=== PATIENT | male | born 1980 | race Caucasian/White ===

== ENCOUNTER 2019-09-12 09:29 | Emergency (ER) | payer MEDICAID ==
[~2019-09-12] VITALS: Ht 182.9 cm; Wt 79.0 kg
[2019-09-12] MEDS ORDERED: SODIUM CHLORIDE 0.9% 1,000 ML IV ONE (09:56)
[2019-09-12 10:28] LABS: BASOPHILS % 0.7 % (0.0-2.0); EOSINOPHILS % 1.1 % (0.0-5.0); HEMATOCRIT. 49.2 % (42.0-52.0); HEMOGLOBIN. 16.6 g/dL (14.0-18.0); LYMPHOCYTES % 21.3 % (20.0-50.0); MEAN CORPUSCULAR HEMOGLOBIN 31.2 pg (28.0-32.0); MEAN CORPUSCULAR VOLUME 92.4 fL (80.0-94.0); MEAN PLATELET VOLUME 8.7 fl (7.4-10.4); MONOCYTES % 8.6 % (2.0-8.0); NEUTROPHILS % 68.3 % (40.0-76.0); PLATELET 296 x1000/uL (130-400); RED BLOOD CELL COUNT 5.32 mill/uL (4.7-6.1)
[2019-09-12 10:29] LABS: CHLORIDE 106 mEq/L (98-107)
[2019-09-12 10:36] LABS: ETHANOL BLOOD < 10 mg/dL
[2019-09-12 13:05] VITALS: BP 117/80
[2019-09-12 13:22] LABS: *AMPHETAMINES SCREEN URINE NEGATIVE (NEGATIVE); *BARBITURATES SCREEN URINE NEGATIVE (NEGATIVE); *BENZODIAZEPINES SCREEN URINE NEGATIVE (NEGATIVE); *COCAINE SCREEN URINE NEGATIVE (NEGATIVE); METHADONE URINE SCREEN NEGATIVE (NEGATIVE)
[2019-09-12 13:23] LABS: CANNABINOID URINE SCREEN NEGATIVE (NEGATIVE); OPIATES URINE SCREEN NEGATIVE (NEGATIVE); PHENCYCLIDINE URINE SCREEN NEGATIVE (NEGATIVE)
== END 2019-09-12 13:16 | disposition home or self-care (01) ==
LOC: ER 09:29
DX: R55 Syncope and collapse (principal); R42 Dizziness and giddiness; F15.10 Other stimulant abuse, uncomplicated
CPT/HCPCS: 36415; 70450; 71045; 80053; 80305; 80320; 83735; 83880; 84484; 85025; 93005; 96360; 99284; J7030; G0480